=== PATIENT | female | born 1965 | race African-American/Black ===

== ENCOUNTER 2023-08-28 05:50 | Emergency (ER) | payer OTHER ==
[2023-08-28 06:45] VITALS: RESP 18
[2023-08-28] MEDS ORDERED: MECLIZINE HCL 25 MG TABLET (FP) PO ONE (07:38)
[2023-08-28] MEDS ORDERED: MECLIZINE HCL 25 MG TABLET (FP) ONE (07:56)
[2023-08-28 09:31] LABS: BASO % 0.9 % (0-2.0); EOS % 1.5 % (0-4.5); HEMATOCRIT 37.6 % (32.4-45.2); HEMOGLOBIN 12.1 GM/dL (10.7-15.3); LYMPH % 37.4 % (8-40); MCH 27.6 pg (25.7-33.7); MCHC 32.3 g/dl (32.0-36.0); MEAN CELL VOLUME 85.4 fl (80-96); MEAN PLT VOLUME 11.8 fl (7.5-11.1); MONO % 4.9 % (3.8-10.2); NEUT % 55.3 % (42.8-82.8); PLATELET COUNT 109 10^3/uL (134-434); RDW 14.3 % (11.6-15.6); WHITE BLOOD COUNT 3.9 K/mm3 (4.0-10.0)
[2023-08-28 09:56] LABS: POTASSIUM 4.5 mmol/L (3.5-5.1)
[2023-08-28 09:58] LABS: ALBUMIN 3.4 g/dl (3.4-5.0)
[2023-08-28 09:59] LABS: BLOOD UREA NITROGEN 13.1 mg/dL (7-18)
[2023-08-28 10:01] LABS: CREATININE 1.1 mg/dL (0.55-1.3)
[2023-08-28 10:03] LABS: BILIRUBIN,TOTAL 0.4 mg/dL (0.2-1)
[2023-08-28 11:35] VITALS: BP 139/76; PULSE 62; TEMP 98.6; BMI 28.9
== END 2023-08-28 11:12 | disposition home or self-care (01) ==
LOC: JER 05:50
DX: R42 Dizziness and giddiness (principal); R11.0 Nausea; H81.10 Benign paroxysmal vertigo, unspecified ear; Z20.822 Contact with and (suspected) exposure to COVID-19
CPT/HCPCS: 0241U-QW; 36415; 71045-TC-FY; 80053; 82962; 84484; 85025; 93005; 93010; 99285-25